=== PATIENT | female | born 2000 | race Caucasian/White ===

== ENCOUNTER 2023-07-12 13:12 | Emergency (ER) | payer OTHER ==
[~2023-07-12] VITALS: Ht 162.6 cm; Wt 65.3 kg
[2023-07-12 13:19] VITALS: BP 110/76
[2023-07-12 13:41] LABS: Source, Urine Clean Catch
[2023-07-12 13:46] LABS: Appearance, Urine Clear (Clear); Bilirubin, Urine Neg (Neg); Blood, Urine Neg (Neg); Color, Urine Yellow (P-Yellow); Glucose Qualitative, Urine Neg (Neg); Ketones, Urine Neg (Neg); Leukocyte Esterase, Urine Neg (Neg); Nitrite, Urine Neg (Neg); Protein, Urine Neg (Neg); Specific Gravity, Urine 1.015 (1.003-1.022); Urobilinogen, Urine NORM (Normal)
== END 2023-07-12 14:11 | disposition home or self-care (01) ==
LOC: ER 13:12
PROVIDERS: Physician Assistant
DX: O36.8120 Decreased fetal movements, second trimester, not applicable or unspecified (principal); Z3A.16 16 weeks gestation of pregnancy; Z88.6 Allergy status to analgesic agent; Z91.040 Latex allergy status
CPT/HCPCS: 76815; 81003; 99284-25

== ENCOUNTER 2023-12-26 07:11 | Inpatient (IN) | payer OTHER ==
[~2023-12-26] VITALS: Ht 162.6 cm; Wt 80.4 kg
[2023-12-26] VITALS (15 sets, daily range): BP systolic 101–121; BP diastolic 63–83
[2023-12-26] MEDS ORDERED: Lactated Ringer's 1,000 ML IV PRN (07:45)
[2023-12-26] MEDS ORDERED: Lidocaine HCl 1% 30 ML SDV XX SCH (07:45)
[2023-12-26] MEDS ORDERED: Bupivacaine HCl 2.5 MG/ML 10ML P/F Injection XX SCH (07:45)
[2023-12-26] MEDS ORDERED: Bupivacaine 0.5% HCl 5 MG/ML 30MLVIAL XX SCH (07:45)
[2023-12-26] MEDS ORDERED: Castor Oil 59.146 ML BTL TOP SCH (07:45)
[2023-12-26] MEDS ORDERED: Misoprostol 200 MCG Tab PR SCH (07:45)
[2023-12-26] MEDS ORDERED: LR Oxytocin 20 Units 1,000 ML IV SCH ×2 (07:45→15:50)
[2023-12-26] MEDS ORDERED: Methylergonovine Maleate 0.2MG / ML 1ML Amp IM SCH (07:45)
[2023-12-26] MEDS ORDERED: Oxytocin 10 Unit / ML Vial IM SCH (07:45)
[2023-12-26 07:53] LABS: BASOPHILS ABSOLUTE AUTO 0.03 K/mm3 (0.00-0.23); BASOPHILS PERCENT AUTO 0 % (0-2); EOSINOPHILS ABSOLUTE AUTO 0.15 K/mm3 (0.00-0.68); EOSINOPHILS PERCENT AUTO 2 % (0-6); Hematocrit 39.7 % (33.0-51.0); Hemoglobin 13.7 g/dL (11.5-16.0); IMMATURE GRAN ABSOLUTE AUTO 0.07 K/mm3 (0.00-0.10); IMMATURE GRAN PERCENT AUTO 1 % (0-1); LYMPHOCYTES ABSOLUTE AUTO 1.55 K/mm3 (0.84-5.20); LYMPHOCYTES PERCENT AUTO 16 % (21-46); MONOCYTES ABSOLUTE AUTO 0.79 K/mm3 (0.16-1.47); MONOCYTES PERCENT AUTO 8 % (4-13); Mean Corpuscular HGB Conc 34.5 g/dL (31.5-36.5); Mean Corpuscular Volume 84 fL (80-100); Mean Platelet Volume 10.3 fL (9.1-12.4); NEUTROPHILS ABSOLUTE AUTO 6.99 K/mm3 (1.96-9.15); NEUTROPHILS PERCENT AUTO 73 % (41-73); Platelet Count 209 K/mm3 (150-400); RDW Standard Deviation 39.8 fL (35.1-46.3); Red Blood Cell Count 4.72 M/mm3 (3.80-5.20); White Blood Cell Count 9.58 K/mm3 (4.00-11.30)
[2023-12-26] MEDS ORDERED: PRENATAL TABLE1 EAC2 PO (08:16)
[2023-12-26] MEDS ORDERED: Ondansetron HCl 2 MG / ML 2ML Vial IV PRN (10:35)
[2023-12-26] MEDS ORDERED: Lactated Ringer's 1,000 ML IV SCH ×2 (10:35→15:50)
[2023-12-26] MEDS ORDERED: FentaNYL 2mcg/ml-Bup 0.1% Epd 250 ML EPI PRN (10:35)
[2023-12-26] MEDS ORDERED: Acetaminophen 500 MG Tab PO PRN (10:35)
[2023-12-26] MEDS ORDERED: ePHEDrine Sulfate 50 MG/ML 1ML Injection XX PRN (10:35)
[2023-12-26] MEDS ORDERED: Calcium Carbonate 500 MG Tab Chew PO PRN (10:35)
[2023-12-26] MEDS ORDERED: FentaNYL Citrate 50 MCG/ML 2 ML Injection IV PRN (10:35)
[2023-12-26] MEDS ORDERED: FLU VACC QS2023-24(6MOS UP)/PF 60 MCG/0.5 ML SYRINGE IM SCH (15:45)
[2023-12-26] MEDS ORDERED: Misoprostol 200 MCG Tab PR PRN (15:45)
[2023-12-26] MEDS ORDERED: Acetaminophen 325 MG TABLET PO PRN (15:45)
[2023-12-26] MEDS ORDERED: Benzocaine Topical Anesthetic Spray 60GM TOP PRN (15:45)
[2023-12-26] MEDS ORDERED: Rho(D) Immune Globulin 300 MCG / SYR IM ONE (15:45)
[2023-12-26] MEDS ORDERED: Docusate Sodium 100 MG Cap PO PRN (15:45)
[2023-12-26] MEDS ORDERED: Methylergonovine Maleate 0.2MG / ML 1ML Amp IM PRN (15:50)
[2023-12-26] MEDS ORDERED: Witch Hazel/Glycerin PADS TOP PRN (15:50)
[2023-12-26] MEDS ORDERED: Ibuprofen 400 MG Tab PO PRN (15:50)
[2023-12-26] MEDS ORDERED: Ketorolac Tromethamine 30mg Vial IV SCH (16:00)
[2023-12-27 04:26] VITALS: BP 115/69
[2023-12-27 06:09] LABS: BASOPHILS ABSOLUTE AUTO 0.05 K/mm3 (0.00-0.23); BASOPHILS PERCENT AUTO 0 % (0-2); EOSINOPHILS ABSOLUTE AUTO 0.15 K/mm3 (0.00-0.68); EOSINOPHILS PERCENT AUTO 1 % (0-6); Hematocrit 37.1 % (33.0-51.0); Hemoglobin 12.8 g/dL (11.5-16.0); IMMATURE GRAN ABSOLUTE AUTO 0.07 K/mm3 (0.00-0.10); IMMATURE GRAN PERCENT AUTO 1 % (0-1); LYMPHOCYTES ABSOLUTE AUTO 2.09 K/mm3 (0.84-5.20); LYMPHOCYTES PERCENT AUTO 16 % (21-46); MONOCYTES ABSOLUTE AUTO 1.01 K/mm3 (0.16-1.47); MONOCYTES PERCENT AUTO 8 % (4-13); Mean Corpuscular HGB 29.4 pg (26.0-34.0); Mean Corpuscular HGB Conc 34.5 g/dL (31.5-36.5); Mean Corpuscular Volume 85 fL (80-100); Mean Platelet Volume 10.6 fL (9.1-12.4); NEUTROPHILS ABSOLUTE AUTO 10.02 K/mm3 (1.96-9.15); NEUTROPHILS PERCENT AUTO 75 % (41-73); Platelet Count 211 K/mm3 (150-400); RDW Coefficient Variation 13.1 % (11.7-14.2); Red Blood Cell Count 4.35 M/mm3 (3.80-5.20); White Blood Cell Count 13.39 K/mm3 (4.00-11.30)
[2023-12-27 07:43] VITALS: BP 108/59
[2023-12-27] MEDS ORDERED: Prenatal Vit/FE Fumarate/FA 1 Tab PO SCH (09:00)
[2023-12-27 12:26] VITALS: BP 116/66
== END 2023-12-27 15:40 | disposition home or self-care (01) | DRG 807 ==
LOC: BC 07:11 → OBS 07:11 → BC 07:20
PROVIDERS: ADMIT Obstetrics & Gynecology
PROC: 10E0XZZ Delivery of Products of Conception, External Approach (ICD-10-PCS; principal; 2023-12-26)
DX: O48.0 Post-term pregnancy (principal); Z37.0 Single live birth; Z3A.40 40 weeks gestation of pregnancy
CPT/HCPCS: 36415; 85025; 86850; 86870; 86900; 86901; 86922; A9270; J2590

== ENCOUNTER 2024-02-27 19:53 | Observation (INO) | payer OTHER ==
[~2024-02-27] VITALS: Ht 162.6 cm; Wt 79.4 kg
[~2024-02-27 19:53] MED LIST: PRENATAL TABLE1 EAC2 PO
[2024-02-27 21:32] LABS: Source, Urine Clean Catch
[2024-02-27 21:37] LABS: Appearance, Urine Clear (Clear); Bilirubin, Urine Neg (Neg); Blood, Urine Neg (Neg); Color, Urine Yellow (P-Yellow); Glucose Qualitative, Urine Neg (Neg); Ketones, Urine Neg (Neg); Leukocyte Esterase, Urine Neg (Neg); Nitrite, Urine Neg (Neg); Protein, Urine Neg (Neg); Specific Gravity, Urine 1.015 (1.003-1.022); Urobilinogen, Urine NORM (Normal)
[2024-02-27 21:37] LABS: BASOPHILS ABSOLUTE AUTO 0.04 K/mm3 (0.00-0.23); BASOPHILS PERCENT AUTO 1 % (0-2); EOSINOPHILS ABSOLUTE AUTO 0.16 K/mm3 (0.00-0.68); EOSINOPHILS PERCENT AUTO 2 % (0-6); Hematocrit 43.1 % (33.0-51.0); Hemoglobin 14.8 g/dL (11.5-16.0); IMMATURE GRAN ABSOLUTE AUTO 0.02 K/mm3 (0.00-0.10); IMMATURE GRAN PERCENT AUTO 0 % (0-1); LYMPHOCYTES ABSOLUTE AUTO 1.22 K/mm3 (0.84-5.20); LYMPHOCYTES PERCENT AUTO 15 % (21-46); MONOCYTES ABSOLUTE AUTO 0.99 K/mm3 (0.16-1.47); MONOCYTES PERCENT AUTO 12 % (4-13); Mean Corpuscular HGB 27.6 pg (26.0-34.0); Mean Corpuscular HGB Conc 34.3 g/dL (31.5-36.5); Mean Corpuscular Volume 80 fL (80-100); Mean Platelet Volume 9.8 fL (9.1-12.4); NEUTROPHILS ABSOLUTE AUTO 5.84 K/mm3 (1.96-9.15); NEUTROPHILS PERCENT AUTO 71 % (41-73); Platelet Count 264 K/mm3 (150-400); RDW Coefficient Variation 12.3 % (11.7-14.2); RDW Standard Deviation 35.5 fL (35.1-46.3); Red Blood Cell Count 5.36 M/mm3 (3.80-5.20); White Blood Cell Count 8.27 K/mm3 (4.00-11.30)
[2024-02-27 22:02] LABS: Albumin, Blood 3.8 g/dL (3.4-5.0); Albumin/Globulin Ratio 1.1 (0.8-1.8); Bilirubin, Total 2.6 mg/dL (0.1-1.0); Bun/Creatinine Ratio 20.7 (12.0-20.0); Calcium, Blood 9.4 mg/dL (8.5-10.1); Creatinine, Blood 0.58 mg/dL (0.40-1.00); Globulin, Blood 3.6 g/dL (2.2-4.0); Potassium, Blood 3.8 mmol/L (3.5-5.5); Total Protein, Blood 7.4 g/dL (6.4-8.2)
[2024-02-28] MEDS ORDERED: PRENATAL TABLE1 EAC2 PO (00:02)
[2024-02-28] MEDS ORDERED: Ketorolac Tromethamine 15mg Vial IV ONE (02:20)
[2024-02-28] MEDS ORDERED: Ondansetron HCl 2 MG / ML 2ML Vial IV ONE (02:20)
[2024-02-28] MEDS ORDERED: FentaNYL Citrate 50 MCG/ML 2 ML Injection IV PRN ×2 (06:05)
[2024-02-28] MEDS ORDERED: Ondansetron HCl 2 MG / ML 2ML Vial IV PRN (06:05)
[2024-02-28] MEDS ORDERED: NS 1,000 ML IV SCH (06:05)
[2024-02-28] MEDS ORDERED: CefTRIAXone Sodium 1,000 MG in NS 100 ML IV ONE (06:10)
[2024-02-28 06:34] VITALS: BP 117/83
[2024-02-28] MEDS ORDERED: Enoxaparin 40 MG/0.4 ML SYR SC SCH (09:00)
[2024-02-28 09:05] LABS: Albumin, Blood 3.6 g/dL (3.4-5.0); Bilirubin, Total 4.7 mg/dL (0.1-1.0); Bun/Creatinine Ratio 18.5 (12.0-20.0); Creatinine, Blood 0.59 mg/dL (0.40-1.00); Globulin, Blood 3.5 g/dL (2.2-4.0); Potassium, Blood 3.6 mmol/L (3.5-5.5); Total Protein, Blood 7.1 g/dL (6.4-8.2)
[2024-02-28] MEDS ORDERED: Piperacillin/Tazobactam Sod 3.375 GM in NS 100 ML IV SCH (12:00)
[2024-02-28 15:16] VITALS: BP 107/71
--- NOTE | 2024-02-28 19:48 | NUR ---
SHIFT SUMMARY PATIENT ALERT AND INTERACTIVE. PATIENT INDEPENDENT IN THE ROOM. DENIED PAIN THROUGHOUT THE DAY AND STATING SHE WAS FEELING MUCH BETTER. PATIENT HOPEFUL OF GOING HOME. MRI DONE. PATIENT TEARFUL WHEN INFORMED THAT SURGERY WOULD BE CONSULTING. PATIENT ASKING MULTIPLE QUESTIONS RELATED TO BREAST FEEDING AND SURGICAL INTERVENTION AND CONCERNS ABOUT MEDICATIONS AND BREAST MILK. PATIENT PUMPING IN THE ROOM REGULARLY. MEDICATIONS VERIFIED SAFE FOR TO CONSUME. ACTIVE LISTENING AND SUPPORT PROVIDED TO BOTH PATIENT AND .
[2024-02-28 21:08] VITALS: BP 118/81
[2024-02-29 03:21] VITALS: BP 101/69
[2024-02-29 05:24] LABS: BASOPHILS ABSOLUTE AUTO 0.05 K/mm3 (0.00-0.23); BASOPHILS PERCENT AUTO 1 % (0-2); EOSINOPHILS ABSOLUTE AUTO 0.43 K/mm3 (0.00-0.68); EOSINOPHILS PERCENT AUTO 8 % (0-6); Hematocrit 42.9 % (33.0-51.0); Hemoglobin 14.1 g/dL (11.5-16.0); IMMATURE GRAN ABSOLUTE AUTO 0.02 K/mm3 (0.00-0.10); IMMATURE GRAN PERCENT AUTO 0 % (0-1); LYMPHOCYTES ABSOLUTE AUTO 1.51 K/mm3 (0.84-5.20); LYMPHOCYTES PERCENT AUTO 27 % (21-46); MONOCYTES ABSOLUTE AUTO 0.54 K/mm3 (0.16-1.47); MONOCYTES PERCENT AUTO 10 % (4-13); Mean Corpuscular HGB 27.8 pg (26.0-34.0); Mean Corpuscular HGB Conc 32.9 g/dL (31.5-36.5); Mean Corpuscular Volume 84 fL (80-100); Mean Platelet Volume 9.7 fL (9.1-12.4); NEUTROPHILS ABSOLUTE AUTO 3.01 K/mm3 (1.96-9.15); NEUTROPHILS PERCENT AUTO 54 % (41-73); Platelet Count 242 K/mm3 (150-400); RDW Coefficient Variation 12.5 % (11.7-14.2); RDW Standard Deviation 38.7 fL (35.1-46.3); Red Blood Cell Count 5.08 M/mm3 (3.80-5.20); White Blood Cell Count 5.56 K/mm3 (4.00-11.30)
--- NOTE | 2024-02-29 05:44 | NUR ---
SHIFT SUMMARY PT HAD NO C/O PAIN OR ACUTE CHANGES THIS SHIFT. CALL LIGHT WITHIN REACH AND PT ABLE TO MAKE NEEDS KNOWN.
[2024-02-29 06:02] LABS: Albumin, Blood 3.4 g/dL (3.4-5.0); Bilirubin, Total 1.8 mg/dL (0.1-1.0); Bun/Creatinine Ratio 10.1 (12.0-20.0); Calcium, Blood 8.8 mg/dL (8.5-10.1); Creatinine, Blood 0.79 mg/dL (0.40-1.00); Globulin, Blood 3.3 g/dL (2.2-4.0); Potassium, Blood 4.1 mmol/L (3.5-5.5); Total Protein, Blood 6.7 g/dL (6.4-8.2)
[2024-02-29 07:52] VITALS: BP 100/63
[2024-02-29 15:19] VITALS: BP 112/80
[2024-02-29] MEDS ORDERED: AMOCLA875 PO (18:06)
--- NOTE | 2024-02-29 18:30 | NUR ---
SHIFT SUMMARY AND DISCHARGE PATIENT ALERT AND ORIENTED. PATIENT INDEPENDENT IN THE ROOM. PATIENT CONTINUES TO BE FREE OF ABDOMINAL PAIN. PATIENT NOT WANTING TO HAVE SURGERY AT THIS TIME. PATIENT WANTING TO GO HOME. PATIENT DISCHARGED TO HOME. PATIENT 8 WEEKS POST AND NOT WANTING TO HAVE SURGERY AT THIS TIME. PROVIDED EDUCATION TO PATIENT RELATED TO CURRENT SITUATION, DIET AND PAIN MANAGEMENT. DISCHARGE INSTRUCTIONS REVIEWED WITH PATIENT AND S.O. AT BEDSIDE. PATIENT AMBULATED OUT AND ESCORTED OUT BY RN. IV DC'D PRIOR TO SHOWER. BELONGINGS SENT HOME WITH PATIENT. ROOM CHECK DONE BEFORE PATIENT DEPARTED.
== END 2024-02-29 18:42 | disposition home or self-care (01) ==
LOC: ER 19:53 → MEDS 02-28 05:45
PROVIDERS: Internal Medicine; Student in an Organized Health Care Education/Training Program; ADMIT Internal Medicine
DX: K80.20 Calculus of gallbladder without cholecystitis without obstruction (principal); Z88.8 Allergy status to other drugs, medicaments and biological substances; Z88.5 Allergy status to narcotic agent; Z91.040 Latex allergy status
CPT/HCPCS: 36415; 74181; 76705; 80053; 81003; 81025; 83690; 83880; 85025; 96365; 96374-59; 96375; 96375-59; 96376; 99285-25; G0378; J0696; J1885; J2405; J2543; J7030

== ENCOUNTER 2024-04-24 22:14 | Observation (INO) | payer OTHER ==
[~2024-04-24] VITALS: Ht 162.6 cm; Wt 83.9 kg
[~2024-04-24 22:14] MED LIST changes: +AMOCLA875 PO
[2024-04-24] MEDS ORDERED: Ketorolac Tromethamine 30mg Vial IV ONE (22:25)
[2024-04-24] MEDS ORDERED: NS 1,000 ML IV SCH (22:25)
[2024-04-24] MEDS ORDERED: Ondansetron HCl 2 MG / ML 2ML Vial IV ONE (22:25)
[2024-04-24 22:33] LABS: BASOPHILS ABSOLUTE AUTO 0.04 K/mm3 (0.00-0.23); BASOPHILS PERCENT AUTO 1 % (0-2); EOSINOPHILS ABSOLUTE AUTO 0.15 K/mm3 (0.00-0.68); EOSINOPHILS PERCENT AUTO 2 % (0-6); Hematocrit 44.1 % (33.0-51.0); IMMATURE GRAN ABSOLUTE AUTO 0.01 K/mm3 (0.00-0.10); IMMATURE GRAN PERCENT AUTO 0 % (0-1); LYMPHOCYTES ABSOLUTE AUTO 2.09 K/mm3 (0.84-5.20); LYMPHOCYTES PERCENT AUTO 25 % (21-46); MONOCYTES ABSOLUTE AUTO 0.76 K/mm3 (0.16-1.47); MONOCYTES PERCENT AUTO 9 % (4-13); Mean Corpuscular HGB 27.8 pg (26.0-34.0); Mean Corpuscular Volume 82 fL (80-100); Mean Platelet Volume 9.7 fL (9.1-12.4); NEUTROPHILS ABSOLUTE AUTO 5.26 K/mm3 (1.96-9.15); NEUTROPHILS PERCENT AUTO 63 % (41-73); Platelet Count 252 K/mm3 (150-400); RDW Coefficient Variation 12.7 % (11.7-14.2); RDW Standard Deviation 37.5 fL (35.1-46.3); White Blood Cell Count 8.31 K/mm3 (4.00-11.30)
[2024-04-24 22:42] LABS: Source, Urine Clean Catch
[2024-04-24 22:46] LABS: Appearance, Urine Clear (Clear); Bilirubin, Urine Neg (Neg); Blood, Urine Neg (Neg); Color, Urine Yellow (P-Yellow); Glucose Qualitative, Urine Neg (Neg); Ketones, Urine Neg (Neg); Leukocyte Esterase, Urine Neg (Neg); Nitrite, Urine Neg (Neg); Protein, Urine Neg (Neg); Specific Gravity, Urine 1.015 (1.003-1.022); Urobilinogen, Urine NORM (Normal)
[2024-04-24 22:55] LABS: Albumin/Globulin Ratio 1.1 (0.8-1.8); Bilirubin, Total 0.5 mg/dL (0.1-1.0); Calcium, Blood 9.5 mg/dL (8.5-10.1); Creatinine, Blood 0.64 mg/dL (0.40-1.00); Globulin, Blood 3.7 g/dL (2.2-4.0); Potassium, Blood 3.7 mmol/L (3.5-5.5); Total Protein, Blood 7.7 g/dL (6.4-8.2)
[2024-04-25] MEDS ORDERED: CefOXitin Sodium 2,000 MG in NS 50 ML IV ONE (00:20)
[2024-04-25] MEDS ORDERED: FentaNYL Citrate 50 MCG/ML 2 ML Injection IV PRN (01:45)
[2024-04-25] MEDS ORDERED: Acetaminophen 325 MG TABLET PO PRN (01:45)
[2024-04-25] MEDS ORDERED: Ondansetron HCl 2 MG / ML 2ML Vial IV PRN (01:50)
[2024-04-25] MEDS ORDERED: Naloxone HCl 0.4MG / ML 1ML Vial IV PRN (01:50)
[2024-04-25] MEDS ORDERED: Ketorolac Tromethamine 15mg Vial IV PRN (02:55)
[2024-04-25] MEDS ORDERED: Lactated Ringer's 1,000 ML IV SCH (03:00)
[2024-04-25 03:33] VITALS: BP 117/73
[2024-04-25 05:13] LABS: BASOPHILS ABSOLUTE AUTO 0.05 K/mm3 (0.00-0.23); BASOPHILS PERCENT AUTO 1 % (0-2); EOSINOPHILS ABSOLUTE AUTO 0.12 K/mm3 (0.00-0.68); EOSINOPHILS PERCENT AUTO 2 % (0-6); Hematocrit 40.1 % (33.0-51.0); Hemoglobin 13.5 g/dL (11.5-16.0); IMMATURE GRAN ABSOLUTE AUTO 0.01 K/mm3 (0.00-0.10); IMMATURE GRAN PERCENT AUTO 0 % (0-1); LYMPHOCYTES ABSOLUTE AUTO 1.74 K/mm3 (0.84-5.20); LYMPHOCYTES PERCENT AUTO 25 % (21-46); MONOCYTES ABSOLUTE AUTO 0.64 K/mm3 (0.16-1.47); MONOCYTES PERCENT AUTO 9 % (4-13); Mean Corpuscular HGB Conc 33.7 g/dL (31.5-36.5); Mean Corpuscular Volume 83 fL (80-100); NEUTROPHILS ABSOLUTE AUTO 4.44 K/mm3 (1.96-9.15); NEUTROPHILS PERCENT AUTO 64 % (41-73); Platelet Count 224 K/mm3 (150-400); RDW Coefficient Variation 12.7 % (11.7-14.2); RDW Standard Deviation 38.5 fL (35.1-46.3); Red Blood Cell Count 4.83 M/mm3 (3.80-5.20)
[2024-04-25 05:26] LABS: International Normalized Ratio 0.96; Prothrombin Time Results 10.3 Sec (9.7-11.5)
[2024-04-25 05:46] LABS: Albumin, Blood 3.5 g/dL (3.4-5.0); Albumin/Globulin Ratio 1.1 (0.8-1.8); Bilirubin, Total 0.5 mg/dL (0.1-1.0); Bun/Creatinine Ratio 23.4 (12.0-20.0); Calcium, Blood 8.2 mg/dL (8.5-10.1); Creatinine, Blood 0.56 mg/dL (0.40-1.00); Globulin, Blood 3.1 g/dL (2.2-4.0); Potassium, Blood 3.6 mmol/L (3.5-5.5); Total Protein, Blood 6.6 g/dL (6.4-8.2)
[2024-04-25] MEDS ORDERED: CefOXitin Sodium 2,000 MG in NS 50 ML IV SCH (06:00)
[2024-04-25 07:54] VITALS: BP 101/63
[2024-04-25] MEDS ORDERED: Prenatal Vit/FE Fumarate/FA 1 Tab PO SCH (09:00)
[2024-04-25] MEDS ORDERED: Docusate Sodium 100 MG Cap PO SCH (09:00)
[2024-04-25] MEDS ORDERED: Lactobacil 2-S.Thermo-Bifido 1 1 Cap PO SCH (09:00)
--- NOTE | 2024-04-25 17:32 | NUR ---
SHIFT SUMMARY PT AOX4, INDEPENDENT IN THE ROOM. CALLS AND MAKES HER NEEDS KNOWN. MEDICATED FOR PAIN PER THE EMAR. AND FAMILY AT THE BS. LAP EVON TO BE DONE TOMORROW, NPO AT MIDNIGHT, CLEARS UNTIL THAT TIME. PT APPEARS COMFORTABLE AND IN NO PAIN AT THIS TIME. CALL LIGHT WITHIN REACH, BED LOCKED AND IN THE LOWEST POSITION. WILL REPORT TO ONCOMING NURSE.
[2024-04-25 19:42] VITALS: BP 102/66
[2024-04-26] VITALS (17 sets, daily range): BP systolic 104–134; BP diastolic 69–90
[2024-04-26] MEDS ORDERED: Lactated Ringer's 1,000 ML IV SCH (07:40)
--- NOTE | 2024-04-26 07:45 | NUR ---
AO4 IND NO C/O OF PAIN, TENDER TO R ABDOMEN W TOUCH, BS +, LR @ 75 ML HR FINISHING 1 OF 2 BAGS, ABX X2 SHCEDULED AT 0000 AND 0600, NO A/R NOTED, W PT MOST OF NIGHT, CLEAR DIET, NPO SINCE MIDNIGHT FOR LAP SX, CALL LIGHT WN REACH FALL PRECAUTIONS IN PLACE.
[2024-04-26] MEDS ORDERED: propofoL 20 ML IV ONE (08:01)
[2024-04-26] MEDS ORDERED: FentaNYL Citrate 50 MCG/ML 2 ML Injection ONE ×3 (08:01→12:16)
[2024-04-26] MEDS ORDERED: Rocuronium Bromide 10 MG/ML 5ML Injection IV ONE (08:01)
[2024-04-26] MEDS ORDERED: Lidocaine HCl 2% Jelly 120MG/6ML SYR (20MG PER ML) ONE (08:03)
[2024-04-26] MEDS ORDERED: Lidocaine HCl 1% 5 ML SYR INJ ONE (08:15)
[2024-04-26] MEDS ORDERED: FentaNYL Citrate 50 MCG/ML 2 ML Injection IV PRN ×3 (08:20)
[2024-04-26] MEDS ORDERED: Ondansetron HCl 2 MG / ML 2ML Vial IV PRN (08:20)
[2024-04-26] MEDS ORDERED: Midazolam HCl 1MG / ML 2ML Vial IV ONE (08:20)
--- NOTE | 2024-04-26 08:49 | NUR ---
AM NOTE: PATIENT LEFT THE ROOM AT 0825 TRANSPORTED VIA WHEELCHAIR BY MILO FRANKEL TO DAY SURGERY FOR JONE BARNARD.
[2024-04-26] MEDS ORDERED: Bupivacaine 0.5% HCl 5 MG/ML 30MLVIAL ONE (10:26)
[2024-04-26] MEDS ORDERED: Midazolam HCl 1MG / ML 2ML Vial ONE (10:38)
[2024-04-26] MEDS ORDERED: Phenylephrine HCl 100 MCG/ML-NS 10MLSYR (1MG/10ML) ONE (10:46)
[2024-04-26] MEDS ORDERED: Dexamethasone Sod Phos 10 MG/ML 1ML VIAL ONE (10:55)
[2024-04-26] MEDS ORDERED: Ondansetron HCl 2 MG / ML 2ML Vial ONE ×2 (10:55→11:56)
[2024-04-26] MEDS ORDERED: Sugammadex Sodium 200 MG/2ML SDV (100 MG/ML) ONE (11:19)
[2024-04-26] MEDS ORDERED: OxyCODONE HCL 5 MG TAB PO PRN (11:40)
[2024-04-26] MEDS ORDERED: NS 250 ML IV PRN (12:15)
--- NOTE | 2024-04-26 13:04 | NUR ---
NOTE: RECEIVED TELEPHONE REPORT FROM MILO DOLAN. PATIENT BACK IN ROOM AT 1245 VIA [employer]. PATIENT ASSISTED TO [facility], VOIDED 600 MLS CLEAR YELLOW URINE AND TRANSFERRED TO BED. PATIENT HAS 3 SMALL INCISION TO R SIDE ABDOMEN AND 1 TO BE[place]OT[place] AREA, SMALL STRIPS DRESSING INTACT. PATIENT REPORTS PAIN 6/10, MEDICATED c PO OXYCODONE. PATIENT SITTING UP IN BED AND HAVING CL DIET LUNCH. CALL LIGHT IN REACH. WC T/O SHIFT. FAMILY AT BEDSIDE.
[2024-04-26] MEDS ORDERED: Acetaminophen650 M1 PO (14:25)
[2024-04-26] MEDS ORDERED: ONDA4ODT MM (14:26)
[2024-04-26] MEDS ORDERED: Norco 5-325 Ta1 EACH PO (14:27)
[2024-04-26] MEDS ORDERED: VISBIOME 112.51 EACH PO (14:31)
[2024-04-26] MEDS ORDERED: Simethicone 80 MG Chew PO PRN (16:00)
[2024-04-26] MEDS ORDERED: Simethicone 80 MG Chew PO ONE (16:00)
[2024-04-26] MEDS ORDERED: Albuterol HFA200 ACT/6.7 GM INH INH PRN (16:05)
--- NOTE | 2024-04-26 16:48 | NUR ---
SHIFT/DISCHARGE SUMMARY: PATIENT A/OX4, ANXIOUS AT TIMES, PLEASANT AND COOPERATIVE c CARE. PATIENT DENIES CP/PRESSURE, N/V, DIZZINESS. PATIENT HAD LAP EVON DONE BY DR. DIAZ THIS PM. PATIENT REPORTS PAIN AND FEELING BLOATED TO ABDOMEN. PATIENT MEDICATED c PRN PAIN MEDS, SIMETHICONE AND ENCOURAGE TO AMBULATE IN ROOM c ASSISTANCE. PATIENT VERBALIZED UNDERSTANDING AND NO FURTHER QUESTIONS. PATIENT REPORTS FEELING BETTER AND STATED "IM READY TO GO HOME NOW." NOTIFIED DR. OLIVERA. VITAL SIGNS REVIEWED. PIV DC'D. PATIENT HAS NO COMPLAINTS OR DENIES NEW CONCERNED THIS SHIFT. PATIENT DISCHARGE HOME. DISCHARGE INSTRUCTIONS PACKET GIVEN TO PATIENT. EDUCATE PATIENT REGARDING ADMITTING DX'S OF SYMPTOMATIC CHOLYSYSTITIS c CHOLELITHIASIS, S/S, LAP EVON POST SURGERY CARE AT HOME, PRECAUTIONS, INCENTIVE SPIROMETER, NEW PRESCRIBED RX AND TO F/U c DR. DIAZ OUTPT. PATIENT VERBALIZED UNDERSTANDING AND NO FURTHER QUESTIONS. RX WAS FAXED TO PATIENT PREFERRED [facility]ARMACY[facility] IN [place]. ALL PATIENT PERSONAL BELONGINGS WERE SENT HOME c THE PATIENT. PATIENT LEFT THE ROOM AT 1647 AND WAS TRANSPORTED VIA WHEELCHAIR BY [employer] TO PATIENT ENTRANCE.
== END 2024-04-26 17:12 | disposition home or self-care (01) ==
LOC: ER 22:14 → MEDS 22:15 → SURS 22:15 → MEDS 04-25 03:25 → ENPENDDIS 04-26 16:24 → MEDS 04-26 17:12
PROVIDERS: Physician Assistant; Surgery; ADMIT Student in an Organized Health Care Education/Training Program
PROC: 0FT44ZZ Resection of Gallbladder, Percutaneous Endoscopic Approach (ICD-10-PCS; principal; 2024-04-26 09:00)
DX: K80.12 Calculus of gallbladder with acute and chronic cholecystitis without obstruction (principal); E72.12 Methylenetetrahydrofolate reductase deficiency; J45.909 Unspecified asthma, uncomplicated; Z88.5 Allergy status to narcotic agent; Z88.8 Allergy status to other drugs, medicaments and biological substances; Z91.040 Latex allergy status
CPT/HCPCS: 36415; 76705; 80053; 81003; 81025; 82947; 83735; 85025; 85610; 88304; 94762; 96365; 96366; 96375; 96376; 99285-25; A9270; G0378; J0694; J1100; J1885; J2250; J2371; J2405; J2704; J3010; J7030; J7050; J7120